=== PATIENT | female | born 1960 | race Caucasian/White ===

== ENCOUNTER → 2016-07-28 | Outpatient (CLI) | payer BC ==
[~2016-07-28] MED LIST: BIOT1CAP8 PO; OMEG10007 PO; VITAMIN C PO; VITAMIN D PO
--- NOTE | 2016-07-28 13:35 | DIAGNOSTIC IMAGING REPORT ---
RIGHT HAND MIN 3 VIEWS CLINICAL HISTORY: Right hand pain COMPARISON: None. DISCUSSION: No fractures are visualized. There are no erosive or destructive changes. There are minor degenerative changes most pronounced the level of the distal interphalangeal joint of the index finger. IMPRESSION: No fracture. No evidence of erosive disease. Electronically signed by: Hansel Tillman M.D. 07/28/2016 1:33 PM Dictated Date/Time: 07/28/2016 1:32 PM
== END | disposition home or self-care (01) ==
LOC: C.RDSM 13:25
PROVIDERS: ATTEND Physician Assistant
DX: M79.641 Pain in right hand (principal)